=== PATIENT | male | born 1995 | race Caucasian/White ===

== ENCOUNTER 2020-11-06 15:16 | Outpatient (CLI) | payer BC | END 2020-11-06 15:17 | disposition home or self-care (01) | LOC: COV 15:16 | PROVIDERS: ATTEND Family Medicine | DX: R53.83 Other fatigue (principal); R68.83 Chills (without fever); Z20.828 Contact with and (suspected) exposure to other viral communicable diseases ==

== ENCOUNTER 2021-07-17 13:48 | Outpatient (CLI) | payer OTHER | END 2021-07-17 13:49 | disposition home or self-care (01) | LOC: COV 13:48 | PROVIDERS: ATTEND Family Medicine | DX: M79.10 Myalgia, unspecified site (principal); R07.0 Pain in throat; R09.81 Nasal congestion; J34.89 Other specified disorders of nose and nasal sinuses; Z20.822 Contact with and (suspected) exposure to COVID-19 ==

== ENCOUNTER 2021-07-19 08:00 | Outpatient (CLI) | payer OTHER | END 2021-07-19 23:59 | disposition home or self-care (01) | LOC: LAB.S 08:00 | PROVIDERS: ATTEND Physician Assistant Medical | DX: R51.9 Headache, unspecified (principal); Z20.822 Contact with and (suspected) exposure to COVID-19 ==